=== PATIENT | male | born 1990 | race Caucasian/White ===

== ENCOUNTER 2019-06-06 09:50 | Emergency (ER) | payer OTHER ==
[~2019-06-06] VITALS: Ht 188 cm; Wt 215.5 kg
[2019-06-06 09:56] VITALS: Ht 188 cm; Wt 215.5 kg
[2019-06-06 10:37] LABS: BASOPHIL % 1.1 % (0-2); PLATELET COUNT 283 x10^3mcL (130-400)
[2019-06-06 10:50] LABS: CALCIUM 9.7 mg/dL (8.5-10.1); CARBON DIOXIDE 28.3 mmol/L (21-32); CHLORIDE SERUM 102 mmol/L (98-107); CREATININE SERUM 0.9 mg/dL (0.7-1.3); GFR1 > 60 mL/min; GLUCOSE SERUM 166 mg/dL (74-106); POTASSIUM SERUM 4.6 mmol/L (3.5-5.1); SODIUM SERUM 140 mmol/L (136-145)
[2019-06-06 10:54] LABS: ALBUMIN 4.1 g/dL (3.4-5.0); ALKALINE PHOSPHATASE 80 U/L (46-116); ALT/SGPT 66 U/L (16-63); AST/SGOT 33 U/L (15-37); BILIRUBIN TOTAL 0.5 mg/dL (0.20-1.00); TOTAL PROTEIN, SERUM 8.1 g/dL (6.4-8.2)
[2019-06-06 12:24] LABS: UA SPECIFIC GRAVITY >=1.030 (1.005-1.035); microscopic required? YES; urine erythrocyte 3+ (NEGATIVE)
[2019-06-06 13:33] VITALS: BP 140/88
== END 2019-06-06 13:33 | disposition home or self-care (01) ==
LOC: ED 09:50
PROVIDERS: Emergency Medicine
DX: N20.0 Calculus of kidney (principal); I10 Essential (primary) hypertension; E11.9 Type 2 diabetes mellitus without complications; Z88.2 Allergy status to sulfonamides
CPT/HCPCS: J1885; J2405

== ENCOUNTER 2019-07-16 14:09 | Emergency (ER) | payer OTHER ==
[~2019-07-16] VITALS: Ht 188 cm; Wt 209.1 kg
[2019-07-16 14:20] VITALS: Ht 188 cm; Wt 209.1 kg
[2019-07-16 15:23] LABS: UA SPECIFIC GRAVITY 1.025 (1.005-1.035); microscopic required? YES; urine erythrocyte 2+ (NEGATIVE)
[2019-07-16 16:58] VITALS: BP 136/99
== END 2019-07-16 16:58 | disposition home or self-care (01) ==
LOC: ED 14:09
PROVIDERS: Emergency Medicine
DX: N39.0 Urinary tract infection, site not specified (principal); I10 Essential (primary) hypertension; E11.9 Type 2 diabetes mellitus without complications; Z87.442 Personal history of urinary calculi; Z88.2 Allergy status to sulfonamides
CPT/HCPCS: J0696; J1885; J2405